=== PATIENT | female | born 2005 | race Caucasian/White ===

== ENCOUNTER 2025-08-03 09:30 | Emergency (ER) | payer SELFPAY ==
[~2025-08-03] VITALS: Ht 165.1 cm; Wt 70.3 kg
[2025-08-03] MEDS ORDERED: Amoxicillin/Clavulanate Pota 875 MG TAB PO ONE (09:55)
[2025-08-03] MEDS ORDERED: VALTREX1000 MG PO (09:57)
[2025-08-03] MEDS ORDERED: AMOX-CLAV 875-1 EACH PO (09:57)
== END 2025-08-03 10:10 | disposition home or self-care (01) ==
LOC: ED 09:30
DX: J02.0 Streptococcal pharyngitis (principal); K12.0 Recurrent oral aphthae